=== PATIENT | female | born 1975 | race Caucasian/White ===

== ENCOUNTER → 2016-07-19 | Outpatient (CLI) | payer OTHER ==
[~2016-07-19] MED LIST: IBU-8800 MG PO; MOTRIN800 MG PO; NAPROXEN375 MG; PEPCID20 MG PO; SYNTHROID0.125 MG PO; ZOLOFT100 MG PO
== END | disposition home or self-care (01) ==
LOC: CT 13:48
DX: G43.009 Migraine without aura, not intractable, without status migrainosus (principal); G50.1 Atypical facial pain

== ENCOUNTER 2017-08-12 10:19 | Emergency (ER) | payer OTHER ==
[~2017-08-12] VITALS: Ht 170.1 cm; Wt 148.3 kg
[2017-08-12] MEDS ORDERED: LEVOTHYROXINE175 MCG PO (10:26)
[2017-08-12] MEDS ORDERED: DULOXETINE HCL60 MG PO (10:26)
[2017-08-12] MEDS ORDERED: NAPROXEN500 MG PO (10:26)
[2017-08-12] MEDS ORDERED: PREDNISONE10 MG PO (12:17)
== END 2017-08-12 12:36 | disposition home or self-care (01) ==
LOC: ED 10:19
DX: M17.0 Bilateral primary osteoarthritis of knee (principal); R03.0 Elevated blood-pressure reading, without diagnosis of hypertension; Z88.8 Allergy status to other drugs, medicaments and biological substances; Z79.899 Other long term (current) drug therapy

== ENCOUNTER → 2017-10-02 | Outpatient (CLI) | payer OTHER ==
[~2017-10-02] MED LIST changes: +DULOXETINE HCL60 MG PO; +LEVOTHYROXINE175 MCG PO; +NAPROXEN500 MG PO; +PREDNISONE10 MG PO
[2017-10-02 16:32] LABS: BASO % 0.4 % (0.0-1.0); EOS # 0.1 10*3/uL (0.0-0.4); EOS % 1.2 % (1.0-4.0); HEMATOCRIT 38.3 % (37.0-47.0); HEMOGLOBIN 12.2 g/dl (12.0-16.0); LYMPH # 2.1 10*3/uL (1.3-4.4); MEAN CELL VOLUME 86.7 fl (81.0-99.0); MEAN CORPUSCULAR HGB 27.6 pg (27.0-31.0); MEAN CORPUSCULAR HGB CONC 31.9 g/dl (33.0-37.0); MONO # 0.5 10*3/uL (0.1-1.0); MONO % 6.3 % (3.0-9.0); NEUT # 5.6 10*3/uL (2.3-7.9); NEUT % 66.9 % (47.0-73.0); PLATELET COUNT AUTOMATED 313 10*3/uL (130-400); RED BLOOD COUNT 4.42 10*6/uL (4.10-5.10); RED CELL DISTRI WIDTH 13.8 % (0-14.5); WHITE BLOOD COUNT 8.3 10*3/uL (4.8-10.8)
== END | disposition home or self-care (01) ==
LOC: LAB 16:18
PROVIDERS: Orthopaedic Surgery
DX: M25.561 Pain in right knee (principal)

== ENCOUNTER → 2017-10-05 | Outpatient (CLI) | payer OTHER ==
[2017-10-05 19:47] LABS: BF LYMPHOCYTES 1 %; BF MACROPHAGES 11 %; BF NEUTROPHILS 88 %
[2017-10-05 20:03] LABS: BODY FLUID WBC 15813 /uL
[2017-10-06 07:06] LABS: HEPATITIS B SURFACE AG Negative (Negative); HEPATITIS C VIRUS ANTIBODY <0.1 s/co (0.0-0.9)
[2017-10-06 08:13] LABS: RHEUMATOID ARTHRITIS FACTOR 120.9 IU/mL (0.0-13.9)
[2017-10-06 11:05] LABS: ANTI-RNP ANTIBODIES <0.2 AI (0.0-0.9)
[2017-10-06 22:05] LABS: CCP ANTIBODIES IGG/IGA >250 units (0-19)
[2017-10-07 00:09] LABS: LUPUS DRVVT 43.7 sec (0.0-47.0); PTT-LA 41.5 sec (0.0-51.9)
[2017-10-07 19:05] LABS: LUPUS REFLEX INTERPRETATION Comment: (.)
[2017-10-10 12:09] LABS: HLA-B27 ANTIGEN Negative (.)
== END | disposition home or self-care (01) ==
LOC: LAB 16:08
PROVIDERS: Orthopaedic Surgery
DX: R76.0 Raised antibody titer (principal); M25.50 Pain in unspecified joint

== ENCOUNTER → 2018-06-14 | Outpatient (CLI) | payer SELFPAY | END | disposition home or self-care (01) | LOC: RESCLI 01:06 | DX: F33.41 Major depressive disorder, recurrent, in partial remission (principal); E03.9 Hypothyroidism, unspecified; E66.01 Morbid (severe) obesity due to excess calories; G89.29 Other chronic pain; M17.0 Bilateral primary osteoarthritis of knee; M06.9 Rheumatoid arthritis, unspecified; Z76.89 Persons encountering health services in other specified circumstances; Z79.899 Other long term (current) drug therapy ==

== ENCOUNTER → 2018-08-21 | Outpatient (CLI) | payer SELFPAY | END | disposition home or self-care (01) | LOC: RESCLI 02:30 | DX: I80.03 Phlebitis and thrombophlebitis of superficial vessels of lower extremities, bilateral (principal); K21.9 Gastro-esophageal reflux disease without esophagitis; M06.9 Rheumatoid arthritis, unspecified; F33.41 Major depressive disorder, recurrent, in partial remission; B97.89 Other viral agents as the cause of diseases classified elsewhere; J01.10 Acute frontal sinusitis, unspecified; E66.01 Morbid (severe) obesity due to excess calories; E03.9 Hypothyroidism, unspecified; M19.90 Unspecified osteoarthritis, unspecified site; Z79.899 Other long term (current) drug therapy; Z88.8 Allergy status to other drugs, medicaments and biological substances ==

== ENCOUNTER 2018-08-26 09:59 | Emergency (ER) | payer SELFPAY ==
[~2018-08-26] VITALS: Ht 170.1 cm; Wt 136.1 kg
[2018-08-26 11:00] LABS: BASO % 0.5 % (0.0-1.0); HEMATOCRIT 34.6 % (37.0-47.0); HEMOGLOBIN 11.4 g/dl (12.0-16.0); LYMPH # 1.7 10*3/uL (1.3-4.4); LYMPH % 43.2 % (27.0-41.0); MEAN CELL VOLUME 95.3 fl (81.0-99.0); MEAN CORPUSCULAR HGB 31.4 pg (27.0-31.0); MEAN CORPUSCULAR HGB CONC 32.9 g/dl (33.0-37.0); MEAN PLATELET VOLUME 9.5 fl (9.6-12.3); MONO # 0.2 10*3/uL (0.1-1.0); MONO % 5.9 % (3.0-9.0); NEUT # 1.9 10*3/uL (2.3-7.9); NEUT % 48.6 % (47.0-73.0); PLATELET COUNT AUTOMATED 191 10*3/uL (130-400); RED BLOOD COUNT 3.63 10*6/uL (4.10-5.10); RED CELL DISTRI WIDTH 16.7 % (0-14.5); WHITE BLOOD COUNT 3.9 10*3/uL (4.8-10.8)
[2018-08-26 11:14] LABS: ALBUMIN 3.2 gm/dl (3.1-4.5); ALKALINE PHOSPHATASE 72 U/L (45-117); BUN 11 mg/dl (7-24); CHLORIDE 111 mmol/L (98-107); CREATININE 0.78 mg/dL (0.55-1.02); POTASSIUM 3.9 mmol/L (3.5-5.1); SGOT/AST 37 IU/L (3-35); SGPT/ALT 37 U/L (12-78); SODIUM 146 mmol/L (136-145); TOTAL PROTEIN 6.7 gm/dL (6.4-8.2)
== END 2018-08-26 14:18 | disposition home or self-care (01) ==
LOC: ED 09:59
PROVIDERS: Emergency Medicine
DX: I80.03 Phlebitis and thrombophlebitis of superficial vessels of lower extremities, bilateral (principal); M17.0 Bilateral primary osteoarthritis of knee; M06.9 Rheumatoid arthritis, unspecified; Z88.8 Allergy status to other drugs, medicaments and biological substances; Z79.899 Other long term (current) drug therapy; Z86.718 Personal history of other venous thrombosis and embolism

== ENCOUNTER → 2022-04-11 | Outpatient (CLI) | payer OTHER | END | disposition home or self-care (01) | LOC: RAD 04-01 14:00 | PROVIDERS: ATTEND Nurse Practitioner Women's Health | DX: Z13.820 Encounter for screening for osteoporosis (principal); Z78.0 Asymptomatic menopausal state ==

== ENCOUNTER → 2022-05-24 | Outpatient (CLI) | payer OTHER | END | disposition home or self-care (01) | LOC: MAMMO 01:29 → US 14:00 | PROVIDERS: ATTEND Nurse Practitioner Women's Health | DX: Z12.31 Encounter for screening mammogram for malignant neoplasm of breast (principal); N88.8 Other specified noninflammatory disorders of cervix uteri; N92.0 Excessive and frequent menstruation with regular cycle ==

== ENCOUNTER → 2022-06-28 | Outpatient (CLI) | payer OTHER | END | disposition home or self-care (01) | LOC: US 06-15 11:00 → EDSTATUS 06-15 11:00 → US 07:30 | PROVIDERS: ATTEND Nurse Practitioner Women's Health | DX: N63.21 Unspecified lump in the left breast, upper outer quadrant (principal) ==

== ENCOUNTER → 2023-01-03 | Outpatient (CLI) | payer OTHER | END | disposition home or self-care (01) | LOC: US 07:39 | PROVIDERS: ATTEND Nurse Practitioner Women's Health | DX: N60.02 Solitary cyst of left breast (principal) ==

== ENCOUNTER 2024-03-04 07:59 | Emergency (ER) | payer OTHER ==
[~2024-03-04] VITALS: Ht 170.1 cm; Wt 139.3 kg
[2024-03-04] MEDS ORDERED: MONTELUKAST SOD10 MG PO (08:20)
[2024-03-04] MEDS ORDERED: BUPROPION75 MG PO (08:20)
[2024-03-04] MEDS ORDERED: ATORVASTATIN CA20 M1 PO (08:20)
[2024-03-04] MEDS ORDERED: TOPIRAMATE100 M2 PO (08:21)
[2024-03-04] MEDS ORDERED: METHOTREXATE S2.5 M1 PO (08:21)
[2024-03-04] MEDS ORDERED: ORENCIA CL125 MG/1 M SQ (08:21)
[2024-03-04] MEDS ORDERED: NATURE'S BLEND F1 MG PO (08:22)
[2024-03-04] MEDS ORDERED: Cyclobenzaprine Hydrochlorid 10 MG TAB PO ONE (08:30)
[2024-03-04 08:44] LABS: EOS # 0.1 10*3/uL (0.0-0.4); EOS % 2.2 % (1.0-4.0); HEMATOCRIT 37.4 % (37.0-47.0); MEAN CELL VOLUME 88.2 fl (81.0-99.0); MEAN CORPUSCULAR HGB 28.3 pg (27.0-31.0); MEAN CORPUSCULAR HGB CONC 32.1 g/dl (33.0-37.0); MONO # 0.2 10*3/uL (0.1-1.0); MONO % 3.8 % (3.0-9.0); NEUT # 2.9 10*3/uL (2.3-7.9); NEUT % 69.5 % (47.0-73.0); PLATELET COUNT AUTOMATED 208 10*3/uL (130-400); RED BLOOD COUNT 4.24 10*6/uL (4.10-5.10); RED CELL DISTRI WIDTH 14.6 % (0-14.5); WHITE BLOOD COUNT 4.2 10*3/uL (4.8-10.8)
[2024-03-04 09:04] LABS: ALKALINE PHOSPHATASE 96 U/L (46-116); BUN 10 mg/dl (9-23); CHLORIDE 107 mmol/L (98-107); POTASSIUM 3.8 mmol/L (3.4-5.1); SGPT/ALT 33 U/L (5-49); TOTAL PROTEIN 7.1 gm/dL (6.0-8.0)
[2024-03-04] MEDS ORDERED: MEDROL DOSEPAK4 MG PO (09:57)
[2024-03-04] MEDS ORDERED: CYCLOBENZAPRINE5 M3 PO (09:57)
== END 2024-03-04 10:15 | disposition home or self-care (01) ==
LOC: ED 07:59
PROVIDERS: Internal Medicine
DX: M54.2 Cervicalgia (principal); G43.909 Migraine, unspecified, not intractable, without status migrainosus; Z88.8 Allergy status to other drugs, medicaments and biological substances; Z98.890 Other specified postprocedural states; Z98.51 Tubal ligation status